=== PATIENT | female | born 1980 | race Caucasian/White ===

== ENCOUNTER → 2023-04-09 12:01 | Outpatient (CLI) | payer BC, SELFPAY ==
[2023-04-09 12:58] LABS: Add Manual Diff / Slide Review NO; Basophils Absolute Auto 0 /uL (0-100); Basophils Percent Auto 0.4 % (0-2); Eosinophils Absolute Auto 100 /uL (0-450); Eosinophils Percent Auto 1.1 % (2-4); Hematocrit 39.9 % (36-46); Hemoglobin 13.3 g/dL (12.0-16.0); Lymphocytes Absolute Auto 3500 /uL (1100-4500); Lymphocytes Percent Auto 35.7 % (25-40); Mean Corpuscular HGB Conc 33.4 % (30-36); Mean Corpuscular Hemoglobin 26.2 PG (26-34); Mean Corpuscular Volume 78.3 fL (80-100); Monocytes Absolute Auto 500 /uL (0-900); Monocytes Percent Auto 5.1 % (3-14); Neutrophils Absolute Auto 5700 /uL (1500-7000); Neutrophils Percent Auto 57.7 % (50-75); Platelet Count 348 X10^3/uL (150-400); Red Cell Distribution Width 15.2 % (11.6-14.8); White Blood Cell Count 9.8 X10^3/uL (4.5-11.0)
[2023-04-09 13:09] LABS: Prothrombin Time 11.2 SECONDS (9.4-12.5)
[2023-04-09 13:14] LABS: HEMOLYSIS < 15 (0-50); Iron 52 ug/dL (37-170)
[2023-04-09 13:16] LABS: Alanine Aminotransferase 22 IU/L (<35); Albumin 4.1 g/dL (3.5-5.0); Albumin Globulin Ratio 1.2 (1.0-2.8); Alkaline Phosphatase 79 U/L (38-126); Aspartate Aminotransferase 22 IU/L (14-36); Bilirubin Total 0.5 mg/dL (0.2-1.3); Blood Urea Nitrogen 14 mg/dL (7-17); Calcium 9.3 mg/dL (8.4-10.2); Chloride 101 mmol/L (98-107); Estimated Glomerular Filt Rate > 60 mL/min (>60); Globulin 3.3 g/dL (1.7-4.1); Glucose 80 mg/dL (70-100); HEMOLYSIS < 15 (0-50); Potassium 4.3 mmol/L (3.4-5.1); Sodium 136 mmol/L (137-145); Total Protein 7.4 g/dL (6.3-8.2)
[2023-04-09 13:28] LABS: Erythrocyte Sedimentation Rate 8 MM/HR (0-20); Hemoglobin A1C% w Est Avg Glu 5.5 % (4.0-6.0)
[2023-04-09 13:29] LABS: Percent Iron Saturation 15 % (15-50); Total Iron Binding Capacity 345 ug/dL (265-497); Transferrin 288 mg/dL (206-381)
[2023-04-09 13:47] LABS: TSH w/ Reflex to FT4 1.37 uIU/mL (0.47-4.68)
[2023-04-09 14:04] LABS: Vitamin B12 848 pg/mL (239-931)
[2023-04-09 15:59] LABS: Carbon Dioxide 38 mmol/L (22-32)
[2023-04-09 16:54] LABS: Vitamin D 25 Hydroxy (D3) 34.3 ng/mL (30.0-100.0)
[2023-04-10 07:36] LABS: Thyroid Peroxidase Antibodies 35 IU/mL (0-34)
[2023-04-10 14:14] LABS: Free T4, Direct Thyroxine 1.28 ng/dL (0.78-2.19)
[2023-04-12 22:05] LABS: Thyroglobulin Antibodies < 1.0 IU/mL (0.0-0.9)
[2023-04-14 18:12] LABS: ANA Screen, IFA Negative (.)
== END ==
PROVIDERS: PCP Family Medicine; Referring Provider Family Medicine; Visit Provider Family Medicine
DX: R59.1 Generalized enlarged lymph nodes (principal); R53.83 Other fatigue; R47.89 Other speech disturbances; T14.8XXA Other injury of unspecified body region, initial encounter; Z87.81 Personal history of (healed) traumatic fracture
CPT/HCPCS: 36415; 80053; 82306; 82607; 83036; 83540; 83550; 84432; 84439; 84443; 84481; 85025; 85610; 85651; 86038; 86376; 86800

== ENCOUNTER → 2023-04-17 12:28 | Outpatient (CLI) | payer BC, SELFPAY ==
--- NOTE | 2023-04-17 12:29 | DI.MRI.S_ITS ---
PROCEDURE: MR HEAD/BRAIN WO CON INDICATIONS: clumsiness, word finding difficulty, family history of Parkinson's disease TECHNIQUE: Noncontrast axial T1 spin echo, axial T2 fast spin echo, sagittal and axial FLAIR, coronal T2 fast spin echo, axial gradient echo, axial diffusion and ADC through the brain. COMPARISON: None. FINDINGS: Image quality: Excellent. CSF Spaces: Basal cisterns are patent. No extra-axial fluid collections. Ventricles are normal in size and shape. Brain: No intracranial masses or hemorrhage. Curtis/white matter interface is normal. Brainstem appears normal. Diffusion-weighted images demonstrate no acute infarct. No chronic ischemic insults. Normal intravascular flow voids are present. Skull and face: Calvarium has normal marrow signal. Orbits appear normal. Sinuses: Sinuses and mastoids are clear. IMPRESSION: No imaging explanation is found for this patient's presenting symptoms. No prior territorial infarct can be seen. No findings of acute or subacute infarction can be seen. Dictated by: Eloy Rodriguez M.D. on 04/17/2023 at 12:16 Approved by: Eloy Rodriguez M.D. on 04/17/2023 at 12:17
== END ==
LOC: MRI 12:28
PROVIDERS: PCP Family Medicine; Referring Provider Family Medicine; Visit Provider Family Medicine
DX: R47.89 Other speech disturbances (principal)
CPT/HCPCS: 70551

== ENCOUNTER → 2023-09-23 08:08 | Outpatient (CLI) | payer BC, SELFPAY | PROVIDERS: PCP Family Medicine; Referring Provider Physician Assistant Surgical; Visit Provider Physician Assistant Surgical | DX: J02.9 Acute pharyngitis, unspecified (principal) | CPT/HCPCS: 87070 ==

== ENCOUNTER 2023-11-22 09:12 | Emergency (ER) | payer BC, SELFPAY ==
[2023-11-22 09:21] VITALS: PULSE 99; O2SAT 91
[2023-11-22 09:22] VITALS: BP 154/81; PULSE 100; O2SAT 96
[2023-11-22 09:26] VITALS: BP 154/81; PULSE 98; RESP 18; TEMP 36.9; O2SAT 96; BMI 36.3
[2023-11-22 09:30] VITALS: BP 125/58; PULSE 81; O2SAT 98
--- NOTE | 2023-11-22 09:37 | ED_ITS ---
HPI - Allergic Reaction General Chief complaint: Allergic Reaction Stated complaint: Sent over from the [facility] . Allergic reaction Time Seen by Provider: 11/22/23 09:21 Source: patient Mode of arrival: Ambulatory History of Present Illness HPI narrative: 43-year-old female has history of dust mite allergy, had epinephrine on hand from her cement block maker in case she had a future reaction to dust mite allergy shots, woke up this morning with nausea vomiting and diarrhea, then progressive generalized itchiness, and some throat tightening sensation, took a dose of her epinephrine injection, repeated the dose. Had good response, took oral Benadryl 50 mg tablet. She presented to walk-in clinic to get coordination of care for epinephrine refill. She feels much improved. They referred her here for anaphylactoid reaction concerns. All of her symptoms had resolved including GI and respiratory, as well as her previous itching since initiation and throat tightening. Related Data Home Medications Medication Instructions Recorded Confirmed duloxetine 60 mg capsule,delayed 60 mg PO DAILY 04/09/23 09/25/23 release gabapentin 600 mg tablet 600 mg PO 3XD 06/04/23 09/25/23 lorazepam 1 mg tablet 1 mg PO DAILY PRN 06/04/23 09/25/23 semaglutide (weight loss) 2.4 mg SUBCUT 06/04/23 09/25/23 mg/0.75 mL subcutaneous pen injector (Angela) trazodone 50 mg tablet 25 mg PO BEDTIME PRN 09/23/23 09/25/23 azelastine 137 mcg (0.1 %) nasal intranasal 11/22/23 11/22/23 spray Previous Rx's Medication Instructions Recorded diclofenac sodium 1 % topical gel 4 g topical QID #100 grams 07/28/23 (Voltaren Arthritis Pain) ipratropium bromide 21 mcg (0.03 2 spray intranasal BID PRN nasal 09/09/23 %) nasal spray congestion #30 mL epinephrine 0.3 mg/0.3 mL 0.3 mg (0.3 mL) IM Q5-15M PRN 11/22/23 injection, auto-injector anaphylaxis #2 ea epinephrine 0.3 mg/0.3 mL 0.3 mg (0.3 mL) IM Q5-15M PRN 11/22/23 injection, auto-injector anaphylaxis #2 ea prednisone 20 mg tablet 40 mg (2 x 20 mg) PO DAILY 5 days 11/22/23 #10 tabs Allergies Allergy/AdvReac Type Severity Reaction Status Date / Time fluoride Allergy Intermediate Rash Verified 11/22/23 09:14 cefaclor [facility] Allergy Mild Hives Verified 11/22/23 09:14 house dust mite Allergy Mild Hives Verified 11/22/23 09:14 latex Allergy Mild Rash Verified 11/22/23 09:14 Review of Systems Review of Systems Narrative: See HPI Patient History Medical History Acne (~2004) Catamenial pneumothorax (~2001) Pneumothorax (~2001) Depression (~2004) Anxiety (~2004) Headache (~2018) Shoulder pain (~2022) Fracture (~2020) Foot pain (~2020) Carpal tunnel syndrome (~2022) Ankle pain (~2020) Chicken pox (~1992) GERD (gastroesophageal reflux disease) (~2021) Surgical History Anesthesia History of ankle surgery (~03/17/23) History of ankle surgery (~08/2021) History of lung surgery (~05/2001) History of ankle surgery (~12/2020) Family History Father Parkinson's disease Prostate cancer Polycythemia vera Diabetes mellitus Mother Hypertension Hyperlipidemia Mental health problem Grandfather History of heart disease Grandmother No problems noted. Social History Smoking Status: Never smoker Smoking Status: Never smoker alcohol intake frequency: holidays/special occasions only Substance Use Type: does not use Exam Narrative Exam Narrative: GENERAL: . Well-developed patient, in mild distress. HEAD: Atraumatic. Normocephalic. EYES: Pupils equal round and reactive. Extraocular motions intact. No scleral icterus. No injection or drainage. ENT: Nose without bleeding, purulent drainage. Throat without erythema, tonsillar hypertrophy or exudate. Airway patent. NECK: Trachea midline. Non tender CARDIOVASCULAR: Regular rate and rhythm without murmurs, gallops, or rubs. RESPIRATORY: Clear to auscultation. Breath sounds equal bilaterally. No wheezes, rales, or rhonchi. GASTROINTESTINAL: Abdomen soft, non-tender, nondistended. EXTREMITIES: No edema or joint tenderness. BACK: Nontender without deformity or crepitance. No flank tenderness. NEURO: AOx3. Motor functions grossly nonfocal SKIN: No rash or erythema of visible areas Initial Vital Signs Initial Vital Signs: Vital Signs Pulse Rate 99 H 11/22/23 09:21 Pulse Oximetry 91 11/22/23 09:21 Course Orders Ordered: Discontinued Medications Prednisone (Prednisone 20 Mg Tablet) 60 mg PO NOW ONE Stop: 11/22/23 09:30 Last Admin: 11/22/23 09:53 Dose: 60 mg Documented By: MARIA TERESA Vital Signs Vital signs: Vital Signs - 8 hr 11/22/23 09:21 11/22/23 09:22 11/22/23 09:22 Temperature Pulse Rate 99 H 100 H Respiratory Rate Blood Pressure 154/81 H Pulse Oximetry 91 96 Oxygen Delivery Method 11/22/23 09:26 11/22/23 09:30 11/22/23 09:30 Temperature 98.4 F Pulse Rate 98 H 81 Respiratory Rate 18 Blood Pressure 154/81 H 125/58 L Pulse Oximetry 96 98 Oxygen Delivery Method Room Air MDM - Allergic Reaction MDM Narrative Medical decision making narrative: Anaphylactoid reaction of unclear cause, diffuse itching with some throat tightening like symptoms as well as nausea vomiting and diarrhea of unclear c ause, that responded to patient's own injection of epinephrine that she had on hand from her cement block maker to use in case she had a future allergic reaction to dust mite allergy shot injections. She took oral Benadryl. Her symptoms are all resolved after self injections, no recurrence of symptoms. She took 50mg Benadryl. We will give oral steroid in case there was a delayed reaction. Afebrile, unremarkable vitals, no obvious respiratory distress, no angioedema like symptoms on exam. No rash or urticaria. Lungs clear, no respiratory distress. Oral prednisone 60 mg now, prescription sent for prednisone pulse next few days. Advised OTC antihistamine next few days as well such as Benadryl. Refill epinephrine injection sent to her pharmacy as well. Follow up with her cement block maker as planned. Return precautions discussed. Discharge Plan Departure Patient Disposition: Home Clinical Impression: Anaphylactoid reaction, Medication refill Instructions: DI for Anaphylaxis Activity Restrictions/Additional Instructions: Anaphylaxis like reaction of unclear cause, generalized itchiness after nausea vomiting and diarrhea, no new drug or other exposure, no bites or stings, no associated hives or swelling of lips or tongue, no wheezing or shortness of breath. You administered injected epinephrine that he had on hand to use if you had any future allergic reaction post allergy shots from your cement block maker. You took oral Benadryl as well. After the antihistamines and epinephrine injections all of your symptoms resolve. You were seeking medication refill at the walk-in clinic, who were worried that you might have anaphylactoid reaction, you could have delayed reaction. Referred here for further treatment/evaluation. Your symptoms resolved prior to arrival. You had unremarkable vitals. Oral dose of steroid was given. Further steroid prescription sent to your pharmacy. Epinep hrine refills prescription sent to your pharmacy. Take oral systemic antihistamines for the next few days as well. Follow up with your cement block maker as planned. Return to this/nearest emergency department for any change worsening symptoms or any concerns prior Prescriptions: New prednisone 20 mg tablet 40 mg PO DAILY 5 Days Qty: 10 0RF epinephrine 0.3 mg/0.3 mL auto-injector 0.3 mg IM Q5-15M PRN (Reason: anaphylaxis) Qty: 2 0RF Rx Instructions: do not exceed 3 doses per episode epinephrine 0.3 mg/0.3 mL auto-injector 0.3 mg IM Q5-15M PRN (Reason: anaphylaxis) Qty: 2 1RF Rx Instructions: do not exceed 3 doses per episode No Action diclofenac sodium [Voltaren Arthritis Pain] 1 % gel 4 g topical QID Qty: 100 0RF Rx Instructions: apply to single knee, ankle, foot; for foot includes sole/toes/top of foot ipratropium bromide 21 mcg (0.03 %) spray,non-aerosol 2 spray intranasal BID PRN (Reason: nasal congestion) Qty: 30 0RF Rx Instructions: administer into each nostril duloxetine 60 mg capsule,delayed release(DR/EC) 60 mg PO DAILY gabapentin 600 mg tablet 600 mg PO 3XD lorazepam 1 mg tablet 1 mg PO DAILY PRN Wegovy 2.4 mg/0.75 mL pen injector SUBCUT Patient Comments: [NO ORIGINAL SIG] trazodone 50 mg tablet 25 mg PO BEDTIME PRN azelastine 137 mcg (0.1 %) spray,non-aerosol intranasal Referrals: Dhara Mccarthy MD [Primary Care Provider] - Stand Alone Forms: Patient Portal/API
[2023-11-22] MEDS: predniSONE 20 MG TABLET 60 MG PO (09:53)
[2023-11-22 10:00] VITALS: PULSE 84; RESP 31; O2SAT 95
[2023-11-22 10:01] VITALS: BP 123/75
== END 2023-11-22 10:03 | disposition home or self-care (01) ==
PROVIDERS: Emergency Provider Emergency Medicine; PCP Family Medicine
DX: R11.2 Nausea with vomiting, unspecified (principal); L29.9 Pruritus, unspecified; Z76.0 Encounter for issue of repeat prescription; T78.40XA Allergy, unspecified, initial encounter
CPT/HCPCS: 99283

== ENCOUNTER → 2023-12-29 08:55 | Outpatient (CLI) | payer BC, SELFPAY ==
--- NOTE | 2023-12-29 08:56 | DI.US.S_ITS ---
LIMITED ULTRASOUND OF RIGHT BREAST: 12/29/2023 CLINICAL: Palpable right breast lump. Comparison is made to exams dated: 12/29/2023 mammogram - [facility] and 01/07/2023 mammogram - [facility]. Color flow and real-time ultrasound of the right breast 2 o'clock region were performed. Curtis scale images of the real-time examination were reviewed. There is a 1.5 cm x 0.9 cm x 1.3 cm wider than tall oval mass in the right breast at 2 o'clock middle depth 8 cm from the nipple. This oval mass is of mixed echogenicity with both echogenic and cystic/anechoic components. This correlates as palpated and with mammography findings. Color flow imaging demonstrates that there is no vascularity present. IMPRESSION: PROBABLY BENIGN The 1.5 cm x 0.9 cm x 1.3 cm wider than tall oval mass in the right breast most likely is fat necrosis and is probably benign. A follow-up right mammogram and a right ultrasound in 6 months is recommended to demonstrate stability. An ultrasound is recommended for further evaluation and is scheduled to immediately follow this examination. This exam was interpreted at Station ID: [id number]. Electronically Signed By: Frankie Farias M.D. aty/:12/29/2023 10:07:46 letter sent: Followup Recommended ACR BI-RADS Category 3: Probably Benign
--- NOTE | 2023-12-29 08:56 | DI.MG.S_ITS ---
BILATERAL DIGITAL DIAGNOSTIC MAMMOGRAM 3D/2D: 12/29/2023 CLINICAL: Right breast lump. Comparison is made to exam dated: 01/07/2023 mammogram - [facility]. There are scattered areas of fibroglandular density (category b / 25%-50% glandular tissue). There is a new 1.1 cm oval equal density focal asymmetry in the right breast at 2 o'clock middle depth. This correlates as palpated, with area of clinical concern, and triangle skin marker. No other significant masses, calcifications, or other findings are seen in either breast. IMPRESSION: INCOMPLETE: NEED ADDITIONAL IMAGING EVALUATION The new 1.1 cm oval equal density focal asymmetry in the right breast resembles fat necrosis and is indeterminate. An ultrasound is recommended for further evaluation and is scheduled to immediately follow this examination. Based on the Tyrer Cuzick model (a risk assessment model) the patient's lifetime risk is 9.5% and her 10 year risk is 1.3%. According to the ACR, ACS, and NCCN guidelines, an annual breast MRI exam along with mammogram is recommended if the patient's lifetime risk is 20% or greater. This exam was interpreted at Station ID: [id number]. NOTE: For mammograms, a report in lay terms will be sent to the patient. Approximately 15% of breast malignancies will not be visualized mammographically. In the management of a palpable breast mass, a negative mammogram must not discourage biopsy of a clinically suspicious lesion. Electronically Signed By: Frankie Farias M.D. aty/:12/29/2023 10:04:52 letter sent: Additional Imaging Needed ACR BI-RADS Category 0: Incomplete: Need Additional Imaging Evaluation
== END ==
PROVIDERS: PCP Family Medicine; Referring Provider Family Medicine; Visit Provider Family Medicine
DX: R92.8 Other abnormal and inconclusive findings on diagnostic imaging of breast (principal); N63.12 Unspecified lump in the right breast, upper inner quadrant
CPT/HCPCS: 76642; 77066; G0279

== ENCOUNTER → 2024-01-02 14:10 | Outpatient (CLI) | payer BC, SELFPAY ==
[2024-01-02 15:07] LABS: Add Manual Diff / Slide Review NO; Basophils Absolute Auto 0 /uL (0-100); Basophils Percent Auto 0.4 % (0-2); Eosinophils Absolute Auto 100 /uL (0-450); Eosinophils Percent Auto 1.3 % (2-4); Hematocrit 37.9 % (36-46); Hemoglobin 12.4 g/dL (12.0-16.0); Lymphocytes Absolute Auto 3200 /uL (1100-4500); Lymphocytes Percent Auto 34.7 % (25-40); Mean Corpuscular HGB Conc 32.6 % (30-36); Mean Corpuscular Hemoglobin 26.6 PG (26-34); Mean Corpuscular Volume 81.5 fL (80-100); Monocytes Absolute Auto 400 /uL (0-900); Monocytes Percent Auto 4.8 % (3-14); Neutrophils Absolute Auto 5500 /uL (1500-7000); Neutrophils Percent Auto 58.8 % (50-75); Platelet Count 318 X10^3/uL (150-400); Red Blood Cell Count 4.65 X10^6/uL (4.0-5.2); Red Cell Distribution Width 14.4 % (11.6-14.8); White Blood Cell Count 9.3 X10^3/uL (4.5-11.0)
[2024-01-02 15:20] LABS: HEMOLYSIS < 15 (0-50); Iron 44 ug/dL (37-170)
[2024-01-02 15:21] LABS: Alanine Aminotransferase 25 IU/L (<35); Albumin 4.1 g/dL (3.5-5.0); Albumin Globulin Ratio 1.5 (1.0-2.8); Alkaline Phosphatase 69 U/L (38-126); Aspartate Aminotransferase 30 IU/L (14-36); BUN Creatinine Ratio 22.6 (6-22); Bilirubin Total 0.3 mg/dL (0.2-1.3); Blood Urea Nitrogen 14 mg/dL (7-17); Calcium 8.8 mg/dL (8.4-10.2); Carbon Dioxide 28 mmol/L (22-32); Chloride 102 mmol/L (98-107); Estimated Glomerular Filt Rate > 60 mL/min (>60); Globulin 2.7 g/dL (1.7-4.1); Glucose 94 mg/dL (70-100); HEMOLYSIS < 15 (0-50); Potassium 4.3 mmol/L (3.4-5.1); Sodium 137 mmol/L (137-145); Total Protein 6.8 g/dL (6.3-8.2)
[2024-01-02 15:25] LABS: Rheumatoid Factor 18.1 IU/mL (<12.0)
[2024-01-02 15:30] LABS: Percent Iron Saturation 13 % (15-50); Total Iron Binding Capacity 350 ug/dL (265-497); Transferrin 326 mg/dL (206-381)
[2024-01-02 15:53] LABS: TSH w/ Reflex to FT4 1.58 uIU/mL (0.47-4.68)
[2024-01-02 15:56] LABS: Ferritin 12 ng/mL (6-137)
[2024-01-02 16:12] LABS: Vitamin B12 780 pg/mL (239-931)
[2024-01-02 16:17] LABS: Erythrocyte Sedimentation Rate 10 MM/HR (0-20)
[2024-01-03 23:21] LABS: Folate 18.5 ng/mL (2.76-20.0)
[2024-01-04 21:36] LABS: Zinc 47 ug/dL (44-115)
[2024-01-05 13:13] LABS: CCP Antibodies IgG/IgA 5 units (0-19)
== END ==
PROVIDERS: PCP Family Medicine; Referring Provider Family Medicine; Visit Provider Family Medicine
DX: L65.9 Nonscarring hair loss, unspecified (principal); L60.1 Onycholysis; R53.83 Other fatigue; R29.898 Other symptoms and signs involving the musculoskeletal system; M25.50 Pain in unspecified joint; R21 Rash and other nonspecific skin eruption; L29.9 Pruritus, unspecified; R53.1 Weakness; R94.6 Abnormal results of thyroid function studies
CPT/HCPCS: 36415; 80053; 82607; 82728; 82746; 83540; 83550; 84207; 84443; 84630; 85025; 85651; 86038; 86200; 86430

== ENCOUNTER → 2024-02-02 07:26 | Outpatient (CLI) | payer BC, SELFPAY ==
--- NOTE | 2024-02-02 07:27 | DI.US.S_ITS ---
PROCEDURE: US THYROID INDICATIONS: positive thyroid antibodies TECHNIQUE: Real-time scanning was performed of the thyroid gland, with image documentation. COMPARISON: [facility], US, US THYROID, 12/11/2021, 6:59. FINDINGS: Thyroid: Right lobe measures 5.3 x 1.1 x 1.8 cm. Left lobe measures 6.0 x 1.3 x 2.1 cm. Isthmus is 0.3 cm thick. Echotexture is homogeneous. No suspicious thyroid nodule is seen. IMPRESSION: Normal sonographic appearance of the thyroid. Approved by: Daniel Mckeon M.D. on 02/02/2024 at 12:47
== END ==
PROVIDERS: PCP Family Medicine; Referring Provider Family Medicine; Visit Provider Family Medicine
DX: R76.8 Other specified abnormal immunological findings in serum (principal)
CPT/HCPCS: 76536

== ENCOUNTER 2024-03-18 18:24 | Emergency (ER) | payer BC, SELFPAY ==
[2024-03-18 18:37] VITALS: BP 163/82; PULSE 96; RESP 20; TEMP 37; O2SAT 100; BMI 34.9
[2024-03-18 22:16] VITALS: BP 152/85; PULSE 85; RESP 18; O2SAT 100
[2024-03-19] VITALS (7 sets, daily range): BP systolic 148–169; BP diastolic 70–87; PULSE 85–92; RESP 16–17; TEMP 36.8; O2SAT 97–99
--- NOTE | 2024-03-19 00:18 | ED_ITS ---
HPI - Nausea/Vomiting/Diarrhea General Chief complaint: Nausea/Vomiting/Diarrhea Stated complaint: vomiting, HARRIS Time Seen by Provider: 03/19/24 00:18 Source: patient Mode of arrival: Ambulatory History of Present Illness HPI Narrative: 43-year-old female without any significant past medical history comes into the ED from home for evaluation of nausea vomiting, states that this started earlier this morning has had persistent nausea and vomiting but denies any actual abdominal pain, she denies any other symptoms such as chest pain shortness a breath fever chills or any other GI/ symptoms at this time. Does note having a dull headache but denies any visual disturbances. Related Data Home Medications Medication Instructions Recorded Confirmed duloxetine 60 mg capsule,delayed 60 mg PO DAILY 04/09/23 01/02/24 release gabapentin 600 mg tablet 600 mg PO 3XD 06/04/23 01/02/24 lorazepam 1 mg tablet 1 mg PO DAILY PRN 06/04/23 01/02/24 semaglutide (weight loss) 2.4 mg SUBCUT 06/04/23 01/02/24 mg/0.75 mL subcutaneous pen injector (Angela) trazodone 50 mg tablet 25 mg PO BEDTIME PRN 09/23/23 01/02/24 fexofenadine 60 mg tablet (Nicolasa 60 mg PO BID 01/02/24 01/02/24 Allergy) Previous Rx's Medication Instructions Recorded epinephrine 0.3 mg/0.3 mL 0.3 mg (0.3 mL) IM Q5-15M PRN 11/22/23 injection, auto-injector anaphylaxis #2 ea ondansetron 4 mg disintegrating 4 mg PO Q8H PRN nausea and 03/19/24 tablet vomiting 1 week #21 tabs Allergies Allergy/AdvReac Type Severity Reaction Status Date / Time fluoride Allergy Intermediate Rash Verified 01/02/24 13:34 wheat Allergy Intermediate unknown Verified 01/02/24 13:34 cefaclor [From [facility]] Allergy Mild Hives Verified 01/02/24 13:34 house dust mite Allergy Mild Hives Verified 01/02/24 13:34 latex Allergy Mild Rash Verified 01/02/24 13:34 Review of Systems Review of Systems Narrative: General: Denies fever, chills, weight loss HEENT: Denies headache, eye drainage, eye irritation, head trauma, sore throat, voice change Cardiovascular: Denies any chest pain, palpitations, shortness of breath, tachycardia Respiratory: Denies any shortness of breath, cough, wheeze, stridor GI/: Positive nausea, vomiting, Denies any abdominal pain diarrhea, bright red blood per rectum, melanotic stools, urinary frequency, urinary retention, dysuria, hematuria MSK: Denies any joint pain, muscle pains, swelling Skin: Denies any rashes, lesions, discoloration Neuro: Denies any headache, lightheadedness, dizziness, fainting, weakness Psych: Denies SI/HI Patient History Medical History Acne (~2004) Catamenial pneumothorax (~2001) Pneumothorax (~2001) Depression (~2004) Anxiety (~2004) Headache (~2018) Shoulder pain (~2022) Fracture (~2020) Foot pain (~2020) Carpal tunnel syndrome (~2022) Ankle pain (~2020) Chicken pox (~1992) GERD (gastroesophageal reflux disease) (~2021) Surgical History Anesthesia History of ankle surgery (~03/17/23) History of ankle surgery (~08/2021) History of lung surgery (~05/2001) History of ankle surgery (~12/2020) Family History Father Parkinson's disease Prostate cancer Polycythemia vera Diabetes mellitus Mother Hypertension Hyperlipidemia Mental health problem Grandfather History of heart disease Grandmother No problems noted. Social History Smoking Status: Never smoker Smoking Status: Never smoker alcohol intake frequency: holidays/special occasions only Exam Narrative Exam Narrative: General: Cooperative, comfortable, well-developed, not in acute distress HEENT: Normocephalic, atraumatic, PERRLA, normal sclera, eyelids normal, Neck: Active full range of motion, atraumatic Chest: Normal to inspection, negative crepitus, no overlying erythema ecchymosis Respiratory: Normal respiratory effort, not in acute respiratory distress, clear to auscultation bilaterally negative cough, wheeze, tachypnea, rhonchi, rales Cardiology: Regular rate rhythm negative gallop, murmur, rubs GI/: Normal to inspection, soft, nonrigid, no tenderness to palpation, exam deferred MSK: Full range of active range of motion of all 4 extremities, atraumatic Skin: No rashes lesions noted Neuro: Alert awake oriented x3, moves all 4 extremities spontaneously, cranial nerves intact, able to answer all questions appropriately follows commands appropriately Psych: Cooperative, negative suicidal or homicidal ideations Initial Vital Signs Initial Vital Signs: Vital Signs Temperature 98.6 F 03/18/24 18:37 Pulse Rate 96 H 03/18/24 18:37 Respiratory Rate 20 03/18/24 18:37 Blood Pressure 163/82 H 03/18/24 18:37 Pulse Oximetry 100 03/18/24 18:37 Oxygen Delivery Method Room Air 03/18/24 18:37 Course Orders Ordered: ED Orders 03/19/24 00:20 Complete Blood Count AUTO DIFF Stat Comprehensive Metabolic Panel Stat Lipase Stat 03/19/24 00:48 Covid-19 + FLU A/B + RSV - PCR Stat 03/19/24 00:56 MAG [Magnesium] Stat 03/19/24 01:00 Urine Microscopic Stat Discontinued Medications Sodium Chloride (Normal Saline 0.9%) 1,000 mls @ 1,000 mls/hr IV BOLUS ONE Stop: 03/19/24 01:28 Last Admin: 03/19/24 00:38 Dose: 1,000 mls/hr Documented By: NICKOLAS Ketorolac Tromethamine (Ketorolac 30 Mg/Ml Vial) 15 mg IV NOW ONE Stop: 03/19/24 00:31 Last Admin: 03/19/24 00:39 Dose: 15 mg Documented By: NICKOLAS Ondansetron HCl (Ondansetron 4 Mg/2 Ml Inj) 4 mg IV NOW ONE Stop: 03/19/24 00:31 Last Admin: 03/19/24 00:39 Dose: 4 mg Documented By: NICKOLAS Vital Signs Vital signs: Vital Signs - 8 hr 03/18/24 18:37 03/18/24 22:16 03/19/24 00:11 Temperature 98.6 F Pulse Rate 96 H 85 92 H Respiratory Rate 20 18 Blood Pressure 163/82 H 152/85 H Pulse Oximetry 100 100 97 Oxygen Delivery Method Room Air Room Air 03/19/24 00:13 03/19/24 00:13 03/19/24 00:25 Temperature 98.2 F Pulse Rate 85 85 Respiratory Rate 17 Blood Pressure 169/87 H 169/87 H Pulse Oximetry 99 98 Oxygen Delivery Method Room Air 03/19/24 01:03 03/19/24 01:04 03/19/24 01:04 Temperature Pulse Rate 87 87 Respiratory Rate Blood Pressure 154/79 H Pulse Oximetry 97 99 Oxygen Delivery Method 03/19/24 01:30 03/19/24 01:30 Temperature Pulse Rate 91 H Respiratory Rate Blood Pressure 155/85 H Pulse Oximetry 97 Oxygen Delivery Method MDM - Nausea/Vomiting/Diarrhea Differential Diagnosis Differential diagnosis: Likely food poisoning, gastroenteritis, drug-induced nausea and vomiting, dehydration and other (Electrolyte abnormality) Lab Data 03/19/24 00:20 03/19/24 00:20 Labs: Lab Results 03/19/24 03/19/24 03/19/24 Range/Units 00:20 00:48 00:56 WBC 11.8 H (4.5-11.0) X10^3/uL RBC 5.35 H (4.0-5.2) X10^6/uL Hgb 14.3 (12.0-16.0) g/dL Hct 42.9 (36-46) % MCV 80.2 (80-100) fL MCH 26.8 (26-34) PG MCHC 33.4 (30-36) % RDW 14.9 H (11.6-14.8) % Plt Count 345 (150-400) X10^3/uL Neut % (Auto) 71.6 (50-75) % Lymph % (Auto) 22.2 L (25-40) % Rock % (Auto) 5.3 (3-14) % Eos % (Auto) 0.5 L (2-4) % Baso % (Auto) 0.4 (0-2) % Neut # (Auto) 8400 H (2009-5628) /uL Lymph # (Auto) 2600 (9223-3013) /uL Rock # (Auto) 600 (0-900) /uL Eos # (Auto) 100 (0-450) /uL Baso # (Auto) 0 (0-100) /uL Sodium 138 (137-145) mmol/L Potassium 3.6 (3.4-5.1) mmol/L Chloride 101 (98-107) mmol/L Carbon Dioxide 28 (22-32) mmol/L BUN 10 (7-17) mg/dL Creatinine 0.69 (0.52-1.04) mg/dL Estimated GFR > 60 (>60) mL/min BUN/Creatinine Ratio 14.5 (6-22) Glucose 103 H (70-100) mg/dL Calcium 9.1 (8.4-10.2) mg/dL Magnesium 2.2 (1.6-2.3) mg/dL Total Bilirubin 0.6 (0.2-1.3) mg/dL AST 29 (14-36) IU/L ALT 25 (<35) IU/L Alkaline Phosphatase 74 (38-126) U/L Total Protein 8.2 (6.3-8.2) g/dL Albumin 4.6 (3.5-5.0) g/dL Globulin 3.6 (1.7-4.1) g/dL Albumin/Globulin Ratio 1.3 (1.0-2.8) Lipase 207 (23-300) U/L Urine RBC (0-5/HPF) Urine WBC (0-5/HPF) Ur Squamous Epith Cells (0-5/HPF) Urine Bacteria (None) Ur Culture Indicated? Vol Urine Centrifuged SARS-CoV-2 (PCR) Negative (Negative) Influenza A (RT-PCR) Flu a negative (NEGATIVE) Influenza B (RT-PCR) Flu b negative (NEGATIVE) RSV (PCR) Negative (Negative) 03/19/24 Range/Units 01:00 WBC (4.5-11.0) X10^3/uL RBC (4.0-5.2) X10^6/uL Hgb (12.0-16.0) g/dL Hct (36-46) % MCV (80-100) fL MCH (26-34) PG MCHC (30-36) % RDW (11.6-14.8) % Plt Count (150-400) X10^3/uL Neut % (Auto) (50-75) % Lymph % (Auto) (25-40) % Rock % (Auto) (3-14) % Eos % (Auto) (2-4) % Baso % (Auto) (0-2) % Neut # (Auto) (4384-3451) /uL Lymph # (Auto) (7668-9490) /uL Rock # (Auto) (0-900) /uL Eos # (Auto) (0-450) /uL Baso # (Auto) (0-100) /uL Sodium (137-145) mmol/L Potassium (3.4-5.1) mmol/L Chloride (98-107) mmol/L Carbon Dioxide (22-32) mmol/L BUN (7-17) mg/dL Creatinine (0.52-1.04) mg/dL Estimated GFR (>60) mL/min BUN/Creatinine Ratio (6-22) Glucose (70-100) mg/dL Calcium (8.4-10.2) mg/dL Magnesium (1.6-2.3) mg/dL Total Bilirubin (0.2-1.3) mg/dL AST (14-36) IU/L ALT (<35) IU/L Alkaline Phosphatase (38-126) U/L Total Protein (6.3-8.2) g/dL Albumin (3.5-5.0) g/dL Globulin (1.7-4.1) g/dL Albumin/Globulin Ratio (1.0-2.8) Lipase (23-300) U/L Urine RBC None seen (0-5/HPF) Urine WBC None seen (0-5/HPF) Ur Squamous Epith Cells 0-1 /hpf (0-5/HPF) Urine Bacteria None seen (None) Ur Culture Indicated? Cult not indicated Vol Urine Centrifuged 10ml (spun) SARS-CoV-2 (PCR) (Negative) Influenza A (RT-PCR) (NEGATIVE) Influenza B (RT-PCR) (NEGATIVE) RSV (PCR) (Negative) Point of Care Testing Test Results Negative Urine Dip Bedside Urine Glucose Negative Bedside Urine Bilirubin - Negative Bedside Urine Ketone - Negative Urine Specific Bryant 1.03 Bedside Urine Occult Blood - Negative Bedside Urine pH 6 Bedside Urine Protein +/- 15 Bedside Urine Urobilinogen - Negative Bedside Urine Nitrite - Negative Bedside Urine Leukocytes - Negative Esterase MDM Narrative Medical decision making narrative: 43-year-old female without any significant past medical history comes to the ED for evaluation of nausea and vomiting started earlier today, denies any actual abdominal pain no other symptoms. Patient had lab work fluids as well as antinausea medication performed here in the emergency department. Patient had lab work here which was remarkable for a mild leukocytosis of 11.8, most likely reactive given symptoms of nausea vomiting, Chem panel unremarkable urinalysis not consistent with an acute urinary tract infection. Patient felt significantly better/complete resolution of her symptoms as for fluids and IV Zofran. Patient was given strict return precautions instructed to follow up with primary care in outpatient setting she verbalized understanding of this and agrees to being discharged home with outpatient follow up Discharge Plan Departure Patient Disposition: Home Clinical Impression: Nausea & vomiting Instructions: DI for Nausea -- Adult, DI for Vomiting -- Adult Activity Restrictions/Additional Instructions: Please follow up with primary care doctor Please read the discharge instructions sheet carefully and bring all papers to all doctor follow-up visits, as it may contain information that your doctor may want to see. Disease processes change and evolve, if your symptoms worsen or if you develop any new symptoms that are concerning to you please return for evaluation. Your evaluation today does not show any evidence of any life- threatening/serious illnesses requiring admission to the hospital or surgery. Please follow-up with your doctor for re-evaluation in approximately 1 day. Seek immediate medical attention for any worrisome symptoms. *If you do not have a primary care provider please contact the [facility] Resource line at [phone]. They will ask some questions about your medical history and help get you set up with a doctor in the community. Prescriptions: New ondansetron 4 mg tablet,disintegrating 4 mg PO Q8H PRN (Reason: nausea and vomiting) 7 Days Qty: 21 0RF No Action duloxetine 60 mg capsule,delayed release(DR/EC) 60 mg PO DAILY gabapentin 600 mg tablet 600 mg PO 3XD lorazepam 1 mg tablet 1 mg PO DAILY PRN Wegovy 2.4 mg/0.75 mL pen injector SUBCUT Patient Comments: [NO ORIGINAL SIG] trazodone 50 mg tablet 25 mg PO BEDTIME PRN fexofenadine [Nicolasa Allergy] 60 mg tablet 60 mg PO BID epinephrine 0.3 mg/0.3 mL auto-injector 0.3 mg IM Q5-15M PRN (Reason: anaphylaxis) Qty: 2 0RF Rx Instructions: do not exceed 3 doses per episode Referrals: Dhara Mccarthy MD [Primary Care Provider] - Stand Alone Forms: Patient Portal/API/Survey
[2024-03-19 00:38] LABS: Add Manual Diff / Slide Review NO; Basophils Absolute Auto 0 /uL (0-100); Basophils Percent Auto 0.4 % (0-2); Eosinophils Absolute Auto 100 /uL (0-450); Eosinophils Percent Auto 0.5 % (2-4); Hematocrit 42.9 % (36-46); Hemoglobin 14.3 g/dL (12.0-16.0); Lymphocytes Absolute Auto 2600 /uL (1100-4500); Lymphocytes Percent Auto 22.2 % (25-40); Mean Corpuscular HGB Conc 33.4 % (30-36); Mean Corpuscular Hemoglobin 26.8 PG (26-34); Mean Corpuscular Volume 80.2 fL (80-100); Monocytes Absolute Auto 600 /uL (0-900); Monocytes Percent Auto 5.3 % (3-14); Neutrophils Absolute Auto 8400 /uL (1500-7000); Neutrophils Percent Auto 71.6 % (50-75); Platelet Count 345 X10^3/uL (150-400); Red Blood Cell Count 5.35 X10^6/uL (4.0-5.2); Red Cell Distribution Width 14.9 % (11.6-14.8); White Blood Cell Count 11.8 X10^3/uL (4.5-11.0)
[2024-03-19] MEDS: SODIUM CHLORIDE 0.9% 1,000 ML 1000 ML IV (00:38)
[2024-03-19] MEDS: KETOROLAC 30 MG/ML VIAL 15 MG IV (00:39)
[2024-03-19] MEDS: ONDANSETRON 4 MG/2 ML INJ IV (00:39)
[2024-03-19 00:53] LABS: Alanine Aminotransferase 25 IU/L (<35); Albumin 4.6 g/dL (3.5-5.0); Albumin Globulin Ratio 1.3 (1.0-2.8); Alkaline Phosphatase 74 U/L (38-126); Aspartate Aminotransferase 29 IU/L (14-36); BUN Creatinine Ratio 14.5 (6-22); Bilirubin Total 0.6 mg/dL (0.2-1.3); Blood Urea Nitrogen 10 mg/dL (7-17); Calcium 9.1 mg/dL (8.4-10.2); Carbon Dioxide 28 mmol/L (22-32); Chloride 101 mmol/L (98-107); Estimated Glomerular Filt Rate > 60 mL/min (>60); Globulin 3.6 g/dL (1.7-4.1); Glucose 103 mg/dL (70-100); HEMOLYSIS < 15 (0-50); Lipase 207 U/L (23-300); Potassium 3.6 mmol/L (3.4-5.1); Sodium 138 mmol/L (137-145); Total Protein 8.2 g/dL (6.3-8.2)
[2024-03-19 01:17] LABS: Magnesium 2.2 mg/dL (1.6-2.3)
[2024-03-19 01:25] LABS: Bacteria Urine None Seen; Culture Indicated Urine Cult Not Indicated; RBC Urine None Seen (0-5/HPF); Squamous Epithelial Cell Urine 0-1 /HPF (0-5/HPF); Urine Volume 10mL (spun); WBC Urine None Seen (0-5/HPF)
[2024-03-19 01:34] LABS: Influenza A - CEPHEID Flu A NEGATIVE (NEGATIVE); Influenza B - CEPHEID Flu B NEGATIVE (NEGATIVE); Respiratory Syncytial Virus Negative (Negative)
[2024-03-19 01:45] LABS: COVID-19 CEPHEID 4-PLEX PCR Negative (Negative)
== END 2024-03-19 02:09 | disposition home or self-care (01) ==
PROVIDERS: Emergency Provider Student in an Organized Health Care Education/Training Program; PCP Family Medicine
DX: R11.2 Nausea with vomiting, unspecified (principal); R51.9 Headache, unspecified
CPT/HCPCS: 0241U; 36415; 80053; 81003; 81015; 81025; 83690; 83735; 85025; 96361; 96374; 96375; 99284; J1885; J2405